=== PATIENT | male | born 2000 | race Caucasian/White ===

== ENCOUNTER 2019-11-16 23:35 | Observation (INO) ==
[2019-11-16] MEDS ORDERED: *HR* LORazepam 1 MG TABLET PO PRN (23:40)
[2019-11-16] MEDS ORDERED: *HR* LORazepam 2 MG/ML VIAL IM PRN (23:40)
[2019-11-16] MEDS ORDERED: hydrOXYzine pamoate 25 MG CAPSULE PO PRN (23:40)
[2019-11-16] MEDS ORDERED: MOM Conc 10 ML UD.LIQ PO PRN (23:40)
[2019-11-16] MEDS ORDERED: Haloperidol Lactate 5 MG/ML VIAL IM PRN (23:40)
[2019-11-16] MEDS ORDERED: Acetaminophen 325 MG TABLET PO PRN (23:40)
[2019-11-16] MEDS ORDERED: haloperidoL 5 MG TABLET PO PRN (23:40)
[2019-11-16] MEDS ORDERED: Mag Hydrox/Al Hydrox/Simeth 30 ML UDC PO PRN (23:40)
[2019-11-16] MEDS ORDERED: Nicotine 2 MG GUM BC PRN (23:40)
[2019-11-16] MEDS ORDERED: traZODone 50 MG TABLET PO PRN (23:40)
[2019-11-17 08:48] VITALS: BP 121/82
== END 2019-11-17 11:05 | disposition home or self-care (01) ==
LOC: INTOOBSV 23:35 → 1ANU 23:35
PROVIDERS: ADMIT Psychiatry & Neurology Psychiatry; ATTEND Psychiatry & Neurology Psychiatry